=== PATIENT | female | born 1950 | race Hispanic/Latino ===

== ENCOUNTER → 2019-11-04 | Outpatient (CLI) | payer OTHER ==
[~2019-11-04] MED LIST: HUM100IN SQ; INSU200I SQ
== END | disposition home or self-care (01) ==
LOC: RAH 07:18
PROVIDERS: ATTEND Internal Medicine Gastroenterology
DX: R16.1 Splenomegaly, not elsewhere classified (principal); I82.890 Acute embolism and thrombosis of other specified veins
CPT/HCPCS: 76700; 93975